=== PATIENT | female | born 1970 | race Caucasian/White ===

== ENCOUNTER 2022-11-08 13:07 | Emergency (ER) | payer BC ==
[2022-11-08] MEDS ORDERED: Ibuprofen 200 MG TAB ONE (15:27)
== END 2022-11-08 15:32 | disposition home or self-care (01) ==
LOC: CSHERS 13:07
DX: J06.9 Acute upper respiratory infection, unspecified (principal); I10 Essential (primary) hypertension; E11.9 Type 2 diabetes mellitus without complications; Z79.84 Long term (current) use of oral hypoglycemic drugs; Z79.899 Other long term (current) drug therapy
CPT/HCPCS: 99283